=== PATIENT | female | born 1965 | race Caucasian/White ===

== ENCOUNTER 2016-10-08 20:16 | Inpatient (IN) ==
--- NOTE | 2016-10-08 20:38 | ED.PDOC ---
General ED Provider: Dr. JEANA MARAVILLA Chief Complaint: Bite Stated Complaint: Patient sustained a bite and scratched on the right ankle at 11 am. Since then it has progressively gotten worse with swelling and severe pain. This is an outside cat that is not upto date on itis shots. Animal control notified Time Seen by Physician: 20:34 Mode of Arrival: Wheelchair Information Source: Patient Primary Care Provider: LAUREEN HAYWARD Nursing and Triage Documentation Reviewed and Agree: Yes Review of Systems - Review Of Systems Constitutional: Reports: No symptoms Eyes: Reports: No symptoms Ears, Nose, Mouth, Throat: Reports: No symptoms Respiratory: Reports: No symptoms Cardiac: Reports: No symptoms GI: Reports: No symptoms : Reports: No symptoms Musculoskeletal: Reports: Joint pain, Joint swelling (right ankle ) Skin: Reports: Bruising, Lesions Neurological: Reports: Anxiety Endocrine: Reports: No symptoms Hematologic/Lymphatic: Reports: No symptoms All Other Systems: Reviewed and Negative Past Medical History - Past Medical History Previously Healthy: Yes Endocrine: Reports: Dyslipidemia Cardiovascular: Reports: Hypertension Respiratory: Reports: None Hematological: Reports: None Gastrointestinal: Reports: None Genitourinary: Reports: None Neuro/Psych: Reports: None Musculoskeletal: Reports: None Cancer: Reports: Breast Last Menstrual Period: 10/25 - Surgical History General Surgical History: Reports: , Cholecystectomy, Orthopedic ( carpal tunnel ), Other (Left Mastectomy feb 2016 ) - Family History Family History: Reports: None - Social History Smoking Status: Never smoker Hx Substance Use: No Alcohol Screening: None - Immunizations Tetanus Shot up to Date: No (unsure) Physical Exam - Physical Exam Appearance: Ill-appearing, Obese Ill-appearing: Moderate Pain Distress: Severe Neck: Supple Respiratory: Airway patent, Breath sounds clear, Breath sounds equal, Respirations nonlabored Cardiovascular: RRR, Pulses normal, No rub, No murmur GI/: Soft, Nontender Musculoskeletal: Edema Skin: Warm, Dry Neurological: Sensation intact, Alert, Alert to verbal, Alert to pain Psychiatric: Anxious Re-Evaluation - Re-Evaluation Time of Re-Evaluation: 22:19 Status: Improved Pain Level: improved Physician Notification - Case Discussed Physician Notified: Dr Roach Time of Notification: 22:10 (admit) Critical Care Note - Critical Care Note Total Time (mins): 10 Course - Course Hematology/Chemistry: 10/08/16 20:50 10/08/16 20:50 Orders, Labs, Meds: Lab Review 10/08/16 20:50 WBC 12.23 H RBC 4.02 L Hgb 11.9 L Hct 34.4 L MCV 85.6 MCH 29.6 MCHC 34.6 RDW Coeff of Lety 13.0 Plt Count 245 Immature Gran % (Auto) 0.3 Neut % (Auto) 86.3 Lymph % (Auto) 8.7 L Estill % (Auto) 4.2 Eos % (Auto) 0.3 Baso % (Auto) 0.2 Immature Gran # (Auto) 0.0 Neut # 10.6 H Lymph # 1.1 Estill # 0.5 Eos # 0.0 Baso # 0.0 Sodium 141 Potassium 3.5 Chloride 105 Carbon Dioxide 23 Anion Gap 16.5 BUN 13 Creatinine 0.82 Estimated GFR (MDRD) 74.00 BUN/Creatinine Ratio 15.85 Glucose 108 Lactic Acid 15.0 Calcium 8.9 Total Bilirubin 0.27 AST 13 L ALT 14 Alkaline Phosphatase 75 Total Protein 7.0 Albumin 3.5 Globulin 3.5 Albumin/Globulin Ratio 1.00 Procalcitonin < 0.05 Orders Category Date Time Status ED IV/MEDIPORT/POWERPORT .ONCE EMERGENCY 10/08/16 20:39 Active BLOOD CULTURE Stat LAB 10/08/16 20:50 Received CBC W/ AUTO DIFF Stat LAB 10/08/16 20:50 Completed COMPREHENSIVE METABOLIC PANEL Stat LAB 10/08/16 20:50 Completed LACTIC ACID Stat LAB 10/08/16 20:50 Completed PROCALCITONIN Stat LAB 10/08/16 20:50 Completed WOUND CULTURE Stat LAB 10/08/16 20:45 Received 0.9 % Sodium Chloride [Saline Flush] MEDS 10/08/16 20:39 Ordered 1 syr IVF PRN PRN Diphth,Pertuss(Acell),Tet Vac [Boostrix] MEDS 10/08/16 20:39 Discontinued 0.5 ml IM .ONCE ONE Hydromorphone HCl [Dilaudid 1 mg/ml Syringe] MEDS 10/08/16 20:54 Discontinued 1 mg IVP ONCE STA Ondansetron HCl/Pf [Zofran 4 mg/2 ml] MEDS 10/08/16 20:39 Discontinued 4 mg IVP ONCE STA Piperacillin Sodium/Tazobactam [Zosyn 3.375 gm] 3.375 MEDS 10/08/16 20:39 Discontinued gm 0.9 % Sodium Chloride [Sodium Chloride] 100 ml IV ONCE Medications Generic Name Dose Route Start Last Admin Trade Name Tess PRN Reason Stop Dose Admin Enoxaparin Sodium 40 mg 10/09/16 09:00 Lovenox SUBCUT DAILY [facility] Hydromorphone HCl 1 mg 10/08/16 22:24 Dilaudid 1 Mg/Ml Syringe IVP Q4HR PRN Severe Pain Azithromycin 500 mg/ Sodium 250 mls @ 125 mls/hr 10/08/16 22:30 Chloride IV DAILY [facility] Piperacillin Sod/Tazobactam 100 mls @ 100 mls/hr 10/09/16 00:00 Sod 3.375 gm/ Sodium Chloride IV Q6HR [facility] Sodium Chloride 1,000 mls @ 75 mls/hr 10/08/16 22:30 Sodium Chloride IV .[id number] [facility] Ibuprofen 600 mg 10/08/16 22:24 Motrin PO Q6H PRN Mild Pain Non-Formulary Medication 1 tab 10/09/16 09:00 Lisinopril/Hydrochlorothiazide [Lisinopril-Hctz 10-12.5 Mg Tab] PO DAILY [facility] Non-Formulary Medication 20 mg 10/09/16 09:00 Tamoxifen Citrate [Tamoxifen Citrate] PO DAILY [facility] Ondansetron HCl 4 mg 10/08/16 22:24 Zofran 4 Mg/2 Ml IVP Q6H PRN Nausea / Vomiting Oxycodone/Acetaminophen 1 tab 10/08/16 22:24 Percocet 5-325 PO Q6H PRN MODERATE PAIN Pravastatin Sodium 40 mg 10/09/16 21:00 Pravachol PO BEDTIME [facility] Sodium Chloride 1 syr 10/08/16 20:39 Saline Flush IVF PRN PRN To flush IV Discontinued Medications Generic Name Dose Route Start Last Admin Trade Name Tess PRN Reason Stop Dose Admin Diphtheria/Pertussis/Tetanus Vacc 0.5 ml 10/08/16 20:39 10/08/16 20:57 Boostrix IM 10/08/16 20:40 0.5 ml .ONCE ONE Administration Hydromorphone HCl 1 mg 10/08/16 20:54 10/08/16 21:36 Dilaudid 1 Mg/Ml Syringe IVP 10/08/16 20:55 1 mg ONCE STA Administration Piperacillin Sod/Tazobactam 100 mls @ 100 mls/hr 10/08/16 20:39 10/08/16 21: 45 Sod 3.375 gm/ Sodium Chloride IV 10/08/16 21:38 100 mls/hr ONCE STA Administration Ondansetron HCl 4 mg 10/08/16 20:39 10/08/16 21:36 Zofran 4 Mg/2 Ml IVP 10/08/16 20:40 4 mg ONCE STA Administration Vital Signs: Temp Pulse Resp BP Pulse Ox 10/08/16 20:17 100.1 F H 85 20 131/80 96 Departure - Departure Time of Disposition: 22:18 Disposition: HOME SELF-CARE Discharge Problem: Cat scratch of right lower leg Qualifiers: Encounter type: initial encounter Qualifier Code: (S80.811A) Abrasion, right lower leg, initial encounter Condition: Fair Pt referred to PMD for follow-up: No Allergies/Adverse Reactions: Allergies No Known Allergies Allergy (Verified 10/08/16 20:23) Home Medications: Ambulatory Orders Pravastatin Sodium [Pravachol] 40 mg PO BEDTIME 03/25/13 Lisinopril/Hydrochlorothiazide [Lisinopril-Hctz 10-12.5 mg Tab] 1 tab PO DAILY 06/11/16 Tamoxifen Citrate 20 mg PO DAILY 06/11/16 Disposition Discussed With: Patient
[2016-10-08] MEDS ORDERED: ZOFRAN 4 MG/2 ML IVP STA (20:39)
[2016-10-08] MEDS ORDERED: BOOSTRIX IM ONE (20:39)
[2016-10-08] MEDS ORDERED: MORPHINE 4 MG/ML SYRINGE IVP STA (20:39)
[2016-10-08] MEDS ORDERED: ZOSYN 3.375 GM 3.375 GM in SODIUM CHLORIDE 100 ML IV STA (20:39)
[2016-10-08] MEDS ORDERED: DILAUDID 1 MG/ML SYRINGE IVP STA (20:54)
[2016-10-08 21:00] LABS: BASOPHILS % (AUTO) 0.2 % (0.0-3.0); EOSINOPHILS % (AUTO) 0.3 % (0.0-7.0); HEMATOCRIT 34.4 % (37.0-47.0); HEMOGLOBIN 11.9 g/dl (12.0-16.0); IMMATURE GRANULOCYTE % (AUTO) 0.3 % (0.0-5.0); LYMPHOCYTES # (AUTO) 1.1 K/uL (0.60-3.4); LYMPHOCYTES % (AUTO) 8.7 (10.0-50.0); MEAN CORPUSCULAR HEMOGLOBIN 29.6 pg (27.0-31.0); MEAN CORPUSCULAR HGB CONC 34.6 (31.8-35.4); MEAN CORPUSCULAR VOLUME 85.6 fl (81.0-99.0); MONOCYTES # (AUTO) 0.5 K/uL (0.4-2.0); MONOCYTES % (AUTO) 4.2 (0-10); NEUTROPHILS # (AUTO) 10.6 K/ul (2.0-6.9); NEUTROPHILS % (AUTO) 86.3; PLATELET COUNT 245 10^3/uL (140-440); RED BLOOD COUNT 4.02 10^6/ul (4.20-5.40); WHITE BLOOD COUNT 12.23 K/ul (4.6-10.2)
[2016-10-08 21:20] LABS: ALBUMIN 3.5 g/dL (3.4-5.0); ANION GAP 16.5; BILIRUBIN,TOTAL 0.27 mg/dL (0.00-1.20); BUN/CREATININE RATIO 15.85; CALCIUM 8.9 mg/dL (8.2-10.2); CREATININE 0.82 mg/dL (0.60-1.30); POTASSIUM 3.5 mmol/L (3.5-5.10)
[2016-10-08] MEDS ORDERED: MOTRIN PO PRN (22:24)
[2016-10-08] MEDS ORDERED: ZOFRAN 4 MG/2 ML IVP PRN (22:24)
[2016-10-08] MEDS ORDERED: DILAUDID 1 MG/ML SYRINGE IVP PRN (22:24)
[2016-10-08] MEDS ORDERED: ZITHROMAX 500 MG in SODIUM CHLORIDE 250 ML IV SCH (22:30)
[2016-10-08] MEDS: SODIUM CHLORIDE 1,000 ML IV SCH (23:28)
[2016-10-08 23:51] VITALS: BMI 33.3
[2016-10-09] MEDS: ZOSYN 3.375 GM 3.375 GM in SODIUM CHLORIDE 100 ML IV SCH ×4 (02:01→18:12)
[2016-10-09 05:49] LABS: BASOPHILS % (AUTO) 0.1 % (0.0-3.0); EOSINOPHILS % (AUTO) 0.2 % (0.0-7.0); HEMATOCRIT 32.3 % (37.0-47.0); HEMOGLOBIN 10.8 g/dl (12.0-16.0); IMMATURE GRANULOCYTE % (AUTO) 0.2 % (0.0-5.0); LYMPHOCYTES # (AUTO) 1.3 K/uL (0.60-3.4); LYMPHOCYTES % (AUTO) 15.7 (10.0-50.0); MEAN CORPUSCULAR HEMOGLOBIN 29.2 pg (27.0-31.0); MEAN CORPUSCULAR HGB CONC 33.4 (31.8-35.4); MEAN CORPUSCULAR VOLUME 87.3 fl (81.0-99.0); MONOCYTES # (AUTO) 0.5 K/uL (0.4-2.0); MONOCYTES % (AUTO) 5.8 (0-10); NEUTROPHILS # (AUTO) 6.4 K/ul (2.0-6.9); PLATELET COUNT 220 10^3/uL (140-440); WHITE BLOOD COUNT 8.27 K/ul (4.6-10.2)
[2016-10-09 06:08] LABS: ALBUMIN 2.9 g/dL (3.4-5.0); ANION GAP 12.4; BILIRUBIN,TOTAL 0.29 mg/dL (0.00-1.20); BUN/CREATININE RATIO 17.1; CREATININE 0.76 mg/dL (0.60-1.30); POTASSIUM 3.4 mmol/L (3.5-5.10); TOTAL PROTEIN 5.8 g/dL (6.4-8.2)
[2016-10-09] MEDS: HYDROCHLOROTHIAZIDE PO SCH (08:27)
[2016-10-09] MEDS: ZESTRIL PO SCH (08:28)
[2016-10-09] MEDS: LOVENOX SUBCUT SCH (08:30)
[2016-10-09] MEDS ORDERED: NON-FORMULARY MEDICATION (Tamoxifen Citrate [Tamoxifen Citrate] 20 MG) PO SCH ×22 (09:00)
[2016-10-09] MEDS: PERCOCET 5-325 PO PRN (12:58)
[2016-10-09] MEDS: NON-FORMULARY MEDICATION (Tamoxifen Citrate [Tamoxifen Citrate] 20 MG) PO SCH ×44 (18:12→20:13)
[2016-10-09] MEDS: SODIUM CHLORIDE 1,000 ML IV SCH (18:21)
[2016-10-09] MEDS ORDERED: PRAVACHOL PO SCH (21:00)
[2016-10-09] MEDS ORDERED: ZITHROMAX 500 MG in SODIUM CHLORIDE 250 ML IV SCH (21:00)
[2016-10-10] MEDS: ZOSYN 3.375 GM 3.375 GM in SODIUM CHLORIDE 100 ML IV SCH ×3 (00:38→11:50)
[2016-10-10 05:00] LABS: BASOPHILS % (AUTO) 0.2 % (0.0-3.0); EOSINOPHILS # (AUTO) 0.1 K/ul (0.0-0.7); HEMATOCRIT 31.6 % (37.0-47.0); HEMOGLOBIN 10.6 g/dl (12.0-16.0); IMMATURE GRANULOCYTE % (AUTO) 0.2 % (0.0-5.0); LYMPHOCYTES % (AUTO) 15.7 (10.0-50.0); MEAN CORPUSCULAR HEMOGLOBIN 29.6 pg (27.0-31.0); MEAN CORPUSCULAR HGB CONC 33.5 (31.8-35.4); MEAN CORPUSCULAR VOLUME 88.3 fl (81.0-99.0); MONOCYTES # (AUTO) 0.4 K/uL (0.4-2.0); MONOCYTES % (AUTO) 5.6 (0-10); NEUTROPHILS % (AUTO) 76.3; PLATELET COUNT 202 10^3/uL (140-440); RED BLOOD COUNT 3.58 10^6/ul (4.20-5.40); WHITE BLOOD COUNT 6.56 K/ul (4.6-10.2)
[2016-10-10 05:16] LABS: ALBUMIN 2.9 g/dL (3.4-5.0); ANION GAP 13.8; BILIRUBIN,TOTAL 0.3 mg/dL (0.00-1.20); BUN/CREATININE RATIO 11.39; CALCIUM 8.2 mg/dL (8.2-10.2); CREATININE 0.79 mg/dL (0.60-1.30); POTASSIUM 3.8 mmol/L (3.5-5.10); TOTAL PROTEIN 5.8 g/dL (6.4-8.2)
[2016-10-10] MEDS: HYDROCHLOROTHIAZIDE PO SCH (08:18)
[2016-10-10] MEDS: ZESTRIL PO SCH (08:18)
[2016-10-10] MEDS: LOVENOX SUBCUT SCH (09:20)
[2016-10-10 10:06] VITALS: BP 97/56; TEMP 97.2
[2016-10-10] MEDS: PERCOCET 5-325 PO PRN (10:57)
--- NOTE | 2016-10-10 13:15 | PN ---
DATE OF VISIT: 10/09/16 51 year old female who had a cat bite on her ankle, right side in the morning of the day of presentation to the emergency room. The area had 3/4 cm gaping wound, as well as two bites on the dorsal surface of the ankle. The ankle was already red and swollen and tender with pain. The pain today has decreased and the redness also has decreased. This patient wanted to go home so she can go back to work tomorrow. I told her that she is not able to go home yet. She most likely will be discharged tomorrow with continued antibiotic treatment. 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 I told her that she may not return to work if I discharge her tomorrow and she might consider going back to work on Monday. Animal control came to the emergency room and the cat is in a cage and will be reserved for a total of 10 days. I did advise last night in the emergency room that maybe the cat should be seen by a Veterinary doctor. LUNGS: Clear to auscultation. HEART: Normal sinus rhythm. CHEST: This patient has a port in the right upper anterior chest. She did a total mastectomy more than a year ago on the left breast. NECK: No masses and no bruit. ABDOMEN: Scar from previous laparoscopic cholecystectomy. LOWER EXTREMITIES: Pedal pulses are present. The right ankle and foot is swollen and red with less tenderness and less redness. The patient will be continued on Zosyn, as well as Azithromycin. CBC today has a normal WBC of 8.27 and was 12.23 yesterday. Calcium 8.0, below normal, but the total protein is only 5.8. Culture and sensitivity was done of the wound, but no results at this time. MTDD
--- NOTE | 2016-10-10 13:56 | HP ---
CHIEF COMPLAINT: Swelling, redness, pain right ankle following a cat bite. SOURCE OF HISTORY: Patient, reliability good. HISTORY OF PRESENT ILLNESS: The patient does have a cat, but not exclusively inside the house. She went out and the cat followed her outside. When she went back in the cat bite her on the ankle and the patient cleaned the area including hydrogen peroxide, however the patient felt pain towards the afternoon with increasing redness and swelling. She presented to the emergency room and after evaluation admission was felt required. I did see the ankle at the emergency room prior to transfer to the floor and indeed the ankle and the foot was swollen and red and tender. An area on the dorsolateral area of the ankle has a gaping wound about 3/4 of a cm and medial to that are two puncture wounds. The patient received a Tetanus booster in the emergency room, plus Zosyn. Animal control was contacted had the cat quarantined for at least 1o days. I did advise the patient that the cat needed to be seen by a vet for further examination. PAST PERSONAL HISTORY: The patient is hypertensive with left breast cancer treated February 16, 2016, laparoscopic cholecystectomy, , carpal tunnel surgery and tubal ligation. The patient is also known to have dyslipidemia. History of depression and anxiety, but she is not taking any medication. The patient did receive chemotherapy prior to the surgery of the left breast and radiation after the surgery. FAMILY HISTORY: Sister has thyroid disease, brother had bypass surgery, mother had bypass, father of lung cancer. SOCIAL HISTORY: The patient is single. Never a smoker and denies any alcohol use or abuse and denies any medication use other than prescribed. 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 MEDICATIONS: Prior to this admission Pravastatin 40 mg daily Tamoxifen Citrate 20 mg daily Lisinopril/HCTZ 10/12.5 mg daily ALLERGIES: No known drug allergies. REVIEW OF SYSTEMS: CONSTITUTIONAL: The patient has no fever and no chills. She has no fatigue. FUEL AGENT: Denies any headaches, ataxia, transient loss of consciousness, seizure disorders. VISUAL: Denies any blurred vision, double vision or transient loss of vision. AUDITORY: Hearing is good. No tinnitus. No pain or drainage. RESPIRATORY: Denies any cough or history of hemoptysis. The patient never did smoke. CARDIOVASCULAR: Denies chest pain or chest tightness or any pain in the jaw or neck. GASTROINTESTINAL: Denies any nausea or anorexia or abdominal pain or diarrhea. GENITOURINARY: Denies any pain, frequency or urgency of urination. MUSCULOSKELETAL: Pain, swelling and redness of right ankle and foot secondary to cat bite. ENDOCRINE: Negative. The patient had left breast carcinoma operated 02/2016. INTEGUMENT: Has scar from the previous of the left breast, total mastectomy. No rash or pruritus. HEMATOLOGIC: Denies any prolonged bleeding or easy bruising. PSYCHIATRIC: Affect is good or normal. The patient had history of anxiety and depression, but not on medication. PHYSICAL EXAMINATION: GENERAL: 51 year old female admitted to the hospital because of swelling and redness and pain of the right ankle and foot secondary to a cat bite. VITAL SIGNS: At the emergency room showed temperature of 100.1, pulse 85, blood pressure 131/80, respiratory rate 20, oxygen saturation 96 at room air. Vital signs at admission on the floor showed a temperature 97, pulse 76, blood pressure 116/73, respiratory rate 16, oxygen saturation 96 at room air. She was listed at 5'10" and 232 pounds and 9 ounces on the floor and for some reason she was listed at 190 in the ER. HEAD: Unremarkable. FACE: Symmetrical and equal with no facial weakness. No remarkable tenderness in the frontal or maxillary sinus areas. EYES: Pupils equal/reactive to light about 3 mm in size. Conjunctivae slightly pale. Sclerae not icteric. MOUTH: Unremarkable. THROAT: No inflammation, tumors or exudate. NECK: No masses. No bruit. No tenderness. No rigidity. CHEST: Asymmetrical with the absence of the left breast from mastectomy 2015. No tenderness. LUNGS: Breath sounds are heard in both sides. No rales or wheezing. HEART: Audible and regular with good tones. No murmurs. ABDOMEN: Protuberant, soft with no remarkable tenderness and no guarding, bowel sounds are active. No masses palpable. Scars from previous laparoscopic cholecystectomy. EXTERNAL GENITALIA: Not examined. PELVIC AND RECTAL: Not performed. LOWER EXTREMITIES: Asymmetrical with swelling and redness of the right ankle and foot with gaping skin area on the dorsolateral ankle. Tibial pulses are present. Both anterior and posterior tibials of both and left and right. UPPER EXTREMITIES: Symmetrical and equal. ASSESSMENT: 1. CAT BITE, INFECTED 2. HISTORY OF LEFT BREAST CARCINOMA, OPERATED 02/2016 WITH PRIOR CHEMOTHERAPY AND RADIATION POST SURGERY 3. HISTORY OF HYPERTENSION 4. HISTORY OF DYSLIPIDEMIA 5. HISTORY OF GERD 6. HISTORY OF CARPAL TUNNEL SYNDROME, RIGHT, OPERATED 7. HISTORY OF TUBAL LIGATION 8. HISTORY OF MTDD
[2016-10-13 08:15] LABS: AEROBIC + ANAEROB SUSC Final report (.); BACT ID RESULT 1 Pasteurella species (.); BACTERIA IDENTIFICATION Final report (.)
--- NOTE | 2016-10-13 09:53 | DS ---
PATIENT IDENTIFICATION: 51 year old female was admitted to the hospital via the emergency room because of cellulitis in the right ankle and foot. The patient was bitten by her cat in the morning on the day of admission. The right ankle and foot had swollen with pain in the evening hours. She then presented to the emergency room. Initial CBC showed 12,230 WBC , mild anemia. Chemistry was unremarkable. Blood sugar 108, GFR 74. Procalcitonin less than 0.05. HOSPITAL COURSE: The patient was given Zosyn at the emergency room and continued this every six hours on admission plus Azithromycin 500 mg daily. The patient on 10/09/2016 was feeling better and the pain is much less and she wanted to go home. I did advise her that she is not ready to go home, although she is better. She needed more antibiotics on board prior to discharge. Her white count now is 8,270. The hemoglobin is down to 10.8 from 11.9 on admission with hematocrit of 32.3 from 34.4. The chemistries were unremarkable except a low total protein of 5.8 and low albumin of 2.9 after hydration. It was normal on admission. The patient was slightly febrile on presentation with a temperature of 100.1. The patient since then has been afebrile until discharge. Her blood pressure had been fluctuating, but within acceptable limits. The blood pressure was higher initially probably because of the pain. Blood pressure systolic was closer to 100 on the last two days in the hospital. The patient on 10/10/16 was alert and feeling much better and ready to go home. She denies any problems and the pain is minimal in the right foot. Her general appearance is good. Her color is good and she is not dyspneic, nor tachypneic. She denies any problems on system review, except for the foot. FACE: Symmetrical and equal. NECK: No bruit. LUNGS: Clear to auscultation in both sides. HEART: Normal sinus rhythm. ABDOMEN: Unremarkable. LOWER EXTREMITIES: The right foot still has swelling, but no remarkable tenderness and the redness has faded with some residual. No drainage. The area that was gaping has now developed scabs and no drainage. The wound culture did grow a light growth of Coccobacilli and no identification at this time. Her blood culture was negative. The patient's CBC on 10/10/2016 now has normal WBC at 6,656. Hemoglobin and hematocrit about the same. Chemistries unremarkable. Essentially the same as the day before. The patient is sent home with the following medications, Clindamycin 300 mg to be taken every six hours #28. She also was prescribed Azithromycin 500 mg #3 to be taken one daily for the next three days. She is instructed to see her provider this coming Monday for further follow up. She is not released to work until she is followed by her provider, Lupis Vo in [place]. FINAL DIAGNOSES: 1. CELLULITIS SECONDARY TO CAT BITE OF RIGHT FOOT AND ANKLE, IMPROVED 2. WOUND CULTURE COCCOBACILLI LIGHT GROWTH, NO IDEA AT THIS TIME. SENT TO [facility] FOR FURTHER IDENTIFICATION AND SENSITIVITY IF NEEDED. [facility]
[2016-10-17 11:40] LABS: AEROBIC + ANAEROB SUSC RES 1 Pasteurella species (.)
== END 2016-10-10 14:45 | disposition home or self-care (01) | DRG 603 ==
LOC: ED 20:16 → MEDSURG B 22:17
PROVIDERS: ADMIT General Practice; ATTEND General Practice
DX: L03.115 Cellulitis of right lower limb (principal); S90.511A Abrasion, right ankle, initial encounter; M25.471 Effusion, right ankle; I10 Essential (primary) hypertension; W55.01XA Bitten by cat, initial encounter; Z79.899 Other long term (current) drug therapy
CPT/HCPCS: 36415; 80053; 83605; 84145; 85025; 87040; 87070; 87077; 87186; 90471; 96365; 96375; 97802; 99223; 99232; 99239; 99284

== ENCOUNTER 2017-09-08 09:45 | Outpatient (CLI) ==
[2017-09-08 10:08] VITALS: BP 126/69; TEMP 97.1
[2017-09-08] MEDS ORDERED: HEPARIN 500 UNIT/5 ML (PORT ACCESS TRAY ONLY) IVF ONE (10:40)
[2017-09-08] MEDS ORDERED: SALINE FLUSH (PORT ACCESS TRAY USE ONLY) IVF ONE (10:41)
== END 2017-09-08 09:46 | disposition home or self-care (01) ==
LOC: OPMED 09:45
PROVIDERS: ATTEND Internal Medicine Hematology & Oncology
DX: C50.912 Malignant neoplasm of unspecified site of left female breast (principal); Z45.2 Encounter for adjustment and management of vascular access device
CPT/HCPCS: 96523